=== PATIENT | female | born 1935 | race Caucasian/White ===

== ENCOUNTER → 2018-06-28 | Day surgery (SDC) | payer MEDICARE, BC | LOC: MSO 09:28 | DX: H26.9 Unspecified cataract (principal) | CPT/HCPCS: A9270-GY ==

== ENCOUNTER → 2019-01-17 | Day surgery (SDC) | payer MEDICARE, BC | LOC: MSO 09:32 | DX: H25.12 Age-related nuclear cataract, left eye (principal); H52.211 Irregular astigmatism, right eye; Z79.899 Other long term (current) drug therapy | CPT/HCPCS: 00142; J0171; J2250; J2370; V2632 ==